=== PATIENT | female | born 1970 | race Hispanic/Latino ===

== ENCOUNTER 2024-05-05 00:29 | Emergency (ER) | payer SELFPAY ==
[2024-05-05 00:38] VITALS: BP 131/75
[2024-05-05 00:45] VITALS: BP 133/77
[2024-05-05 01:00] VITALS: BP 130/85
[2024-05-05] MEDS ORDERED: SODIUM CHLORIDE 0.9% 1,000 ML IV STA (01:03)
[2024-05-05] MEDS ORDERED: Pantoprazole Sodium 40 MG VIAL (Protonix) IV STA (01:03)
[2024-05-05] MEDS ORDERED: PROMETHAZINE HCL 25 MG/ML AMP IV ONE (01:05)
[2024-05-05] MEDS ORDERED: KETOROLAC TROMETHAMINE 30 MG/ML SDV IV ONE (01:05)
[2024-05-05] MEDS ORDERED: MORPHINE SULFATE 4 MG/ML VIAL IV ONE (01:05)
[2024-05-05 01:36] LABS: BASO% 0.6 % (0-3); EOS% 1.7 % (0-8); HEMOGLOBIN 14.2 g/dl (12.0-16.0); IMMATURE GRANULOCYTES 0.9 % (0.0-5.0); LYMPH% 18.3 % (15-41); MEAN CELL VOLUME 98.5 fL CALC (80.0-100.0); MEAN CORPUSCULAR HGB 31.1 pG CALC (26.0-32.0); MEAN CORPUSCULAR HGB CONC 31.6 g/dL CAL (32.0-36.0); MONO% 5.3 % (2-13); NEUT# 7.39 thou/uL (2.00-7.15); NEUT% 73.2 % (42-76); RED BLOOD COUNT 4.57 mill/uL (4.20-5.60); RED CELL DISTRI WIDTH 12.4 % (11.5-15.5)
[2024-05-05 01:54] LABS: ALBUMIN 4.4 g/dL (3.2-5.0); BILIRUBIN, TOTAL 0.4 mg/dL (0.02-1.3); CREATININE 0.7 mg/dL (0.5-1.0); POTASSIUM 4.3 mmol/l (3.5-5.1); TOTAL PROTEIN 7.8 g/dL (6.3-8.2)
[2024-05-05] MEDS ORDERED: DICYCLOMINE HYD10 MG PO (04:19)
[2024-05-05 04:23] VITALS: BP 130/85
[2024-05-05 05:05] LABS: URINE BLOOD DIPSTICK Moderate (NEGATIVE); URINE GLUCOSE - DIPSTICK Negative (NEGATIVE); URINE KETONE Negative (NEGATIVE); URINE LEUK ESTERASE Negative (NEGATIVE); URINE NITRITE - DIPSTICK Negative (Negative); URINE PH 5.5 (4.5-8.0); URINE PROTEIN - DIPSTICK Trace mg/dL (NEG-TRACE); URINE SPECIFIC GRAVITY 1.015; URINE UROBILINOGEN - DIPSTICK 0.2 E.U./dL (0.2)
[2024-05-05 05:06] LABS: URINE COLOR Yellow
[2024-05-05 05:07] LABS: URINE BILIRUBIN - DIPSTICK Negative (NEGATIVE)
[2024-05-05 05:10] LABS: URINE BACTERIA FEW hpf; URINE EPITHELIAL CELLS MANY EPI/hpf (0-FEW)
[2024-05-05 05:11] LABS: URINE MUCUS FEW hpf (NONE-FEW)
[2024-05-06] MEDS ORDERED: ZOFRAN4 MG/TAB PO ×2 (07:27→09:16)
[2024-05-06] MEDS ORDERED: HYDROCO/APAP1 TA9 PO ×2 (07:27→09:16)
== END 2024-05-05 04:42 | disposition home or self-care (01) | DRG 392 ==
LOC: ED 00:29
PROVIDERS: Family Medicine
DX: R10.9 Unspecified abdominal pain (principal); K76.0 Fatty (change of) liver, not elsewhere classified; I10 Essential (primary) hypertension
CPT/HCPCS: J2470; J2550; Q9967

== ENCOUNTER 2024-05-06 06:36 | Emergency (ER) | payer SELFPAY ==
[~2024-05-06] VITALS: Ht 162.6 cm; Wt 82.0 kg
[~2024-05-06 06:36] MED LIST: DICYCLOMINE HYD10 MG PO
[2024-05-06] MEDS ORDERED: SODIUM CHLORIDE 0.9% 1,000 ML IV ONE ×2 (07:25)
[2024-05-06] MEDS ORDERED: ONDANSETRON HCl 4 MG/2 ML SDV IV ONE (07:25)
[2024-05-06] MEDS ORDERED: HYDROmorphone HCL 2 MG/AMP IV ONE (07:25)
[2024-05-06] MEDS ORDERED: ZOFRAN4 MG/TAB PO ×2 (07:27→09:16)
[2024-05-06] MEDS ORDERED: HYDROCO/APAP1 TA9 PO ×2 (07:27→09:16)
[2024-05-06] MEDS ORDERED: KETOROLAC TROMETHAMINE 30 MG/ML SDV IV ONE (08:30)
[2024-05-06 08:40] VITALS: BP 151/87
== END 2024-05-06 08:41 | disposition left against medical advice (07) | DRG 392 ==
LOC: ED 06:36
DX: R10.11 Right upper quadrant pain (principal); K74.60 Unspecified cirrhosis of liver; I10 Essential (primary) hypertension; Z53.29 Procedure and treatment not carried out because of patient's decision for other reasons
CPT/HCPCS: J1171; J2405